=== PATIENT | female | born 1960 | race Caucasian/White ===

== ENCOUNTER 2023-12-31 13:18 | Emergency (ER) | payer MEDICARE, MEDICAID ==
[~2023-12-31] VITALS: Ht 170.2 cm; Wt 63.6 kg
[2023-12-31] MEDS ORDERED: morphine 2 MG/ML inj. syringe IM ONE (14:20)
[2023-12-31] MEDS ORDERED: PRED20TA PO (14:22)
[2023-12-31] MEDS ORDERED: IBUP-1984 PO (14:22)
[2023-12-31] MEDS ORDERED: CYCL-1 PO (14:22)
[2023-12-31] MEDS: cyclobenzaprine 10mg tablet PO ONE (14:37)
[2023-12-31] MEDS: ondansetron 4mg rapidly disintigrating tab PO ONE (14:38)
[2023-12-31] MEDS: morphine 4 MG/ML inj SYRINge IM ONE (14:40)
[2023-12-31] MEDS: ketorolac tromethamine 15mg/ml inj. IM ONE (14:40)
[2023-12-31 15:06] VITALS: BP 94/58; PULSE 63; RESP 17; TEMP 98; O2SAT 98
== END 2023-12-31 15:03 | disposition home or self-care (01) ==
LOC: ER 13:19
DX: S39.012A Strain of muscle, fascia and tendon of lower back, initial encounter (principal); Z79.899 Other long term (current) drug therapy; Z79.1 Long term (current) use of non-steroidal anti-inflammatories (NSAID); X58.XXXA Exposure to other specified factors, initial encounter; Y93.89 Activity, other specified; Y92.89 Other specified places as the place of occurrence of the external cause; Y99.8 Other external cause status
CPT/HCPCS: 96372; 99284; J1885; J2270

== ENCOUNTER 2025-04-27 10:32 | Outpatient (CLI) | payer MEDICARE, MEDICAID ==
[~2025-04-27 10:32] MED LIST: CYCL-1 PO
--- NOTE | 2025-04-27 14:02 | RADIOLOGY REPORT ---
EXAM: CT CT CHEST ABDOMEN PELVIS INDICATION: ABDOMINAL PAIN TECHNIQUE: Volumetric multidetector CT images of the chest, abdomen and pelvis were obtained after th e administration of IV contrast. All CT scans at this facility use dose modulation, iterative reconst ruction, and/or weight based dosing when appropriate to reduce radiation dose to as low as reasonably achievable. COMPARISON: None FINDINGS: LOWER NECK: Unremarkable LYMPH NODES/MEDIASTINUM: Calcified mediastinal lymph nodes likely related to antecedent granulomatous infection. CARDIOVASCULAR: Normal cardiac size. No pericardial effusion. No aneurysmal dilatation of the great v essels. No significant coronary artery calcifications. LUNG PARENCHYMA/PLEURAL SPACE: No pleural effusion or pneumothorax. No consolidation. Calcific granu chris right upper lobe. 4 mm pulmonary nodules in the right upper lobe. Additional 3 mm micronodule in the left lung apex. CHEST WALL: Unremarkable. LIVER: Normal hepatic size without suspicious focal lesion. GALLBLADDER/BILIARY TREE: No cholelithiasis. SPLEEN: Unremarkable. PANCREAS: Unremarkable. ADRENAL GLANDS: Unremarkable KIDNEYS: No hydronephrosis. BLADDER: Unremarkable for the degree distention. PELVIC ORGANS: BOWEL/MESENTERY: No CT evidence of bowel obstruction. Mild stool burden. Slight hazy mesentery of the small bowel mesenteric root. ASCITES: Absent LYMPHADENOPATHY: No pathologically enlarged lymph nodes by CT size criteria. small likely reactive sm all bowel mesenteric root lymph nodes VASCULATURE: No aneurysmal dilatation. ABDOMINAL WALL: Unremarkable. MUSCULOSKELETAL: No acute fracture or aggressive focal osseous lesion. Multifocal degenerative change of the visualized spine. broad-based posterior disc protrusion measuring 3-4 mm at L5-S1 IMPRESSION: 1. No CT evidence of an acute chest, abdominal/pelvic process. Slight hazy mesentery of the small bow el mesenteric root. Imaging finding is nonspecific and may be related to mesenteric panniculitis vers us sequelae of prior inflammation /enteritis. 2. Nonspecific less than 6 mm micro nodules primarily in bilateral upper lobes however dominant pulmo nary nodule measures 4-5 mm in the right upper lobe. Consider follow-up CT in 12 months to assess fo r stability. 3. Mild stool burden. Normal appendix. no hydronephrosis.
== END 2025-04-27 23:59 | disposition home or self-care (01) ==
LOC: RAD 10:32
PROVIDERS: ATTEND Family Medicine
DX: R91.8 Other nonspecific abnormal finding of lung field (principal); R10.9 Unspecified abdominal pain
CPT/HCPCS: 71250; 74176

== ENCOUNTER 2025-06-21 11:34 | Outpatient (CLI) | payer MEDICARE, MEDICAID ==
--- NOTE | 2025-06-21 13:52 | RADIOLOGY REPORT ---
MR MRI THORACIC SPINE INDICATION: SPONDYLOSIS W/O MYELOPATHY OR RADICULOPATHY, THORACIC REGION EXAM DATE: 06/21/2025 11:48 AM COMPARISON: None PROCEDURE: Using a 1.5 Eugenie scanner, multisequence multiplanar imaging of the thoracic spine was obtained. 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 The thoracic spine shows anatomic alignment with preservation of vertebral body heights. The marrow signal is homogeneous. The intervertebral discs appear normal in height and signal. On axial images, the posterior disc margins, thecal sac, neural foramina, and facet joints appear normal at all levels. The thoracic cord is normal in signal and caliber. The paraspinal soft tissues are normal. 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 Otherwise unremarkable MRI findings of the thoracic spine.
== END 2025-06-21 23:59 | disposition home or self-care (01) ==
LOC: MRI02 11:34
PROVIDERS: ATTEND Nurse Practitioner Adult Health
DX: M47.814 Spondylosis without myelopathy or radiculopathy, thoracic region (principal); M47.26 Other spondylosis with radiculopathy, lumbar region; M46.1 Sacroiliitis, not elsewhere classified; M54.6 Pain in thoracic spine; M54.59 Other low back pain
CPT/HCPCS: 72146